=== PATIENT | male | born 1940 | race Caucasian/White ===

== ENCOUNTER 2019-01-27 10:13 | Emergency (ER) | payer MEDICARE, BC ==
[2019-01-27 10:37] VITALS: BP 117/87
--- NOTE | 2019-01-27 10:50 | UC ---
Knee Pain HPI - HPI Summary HPI Summary: 78-year-old male comes in with a chief complaint of left knee swelling and pain. Patient's been increasing his activity level in the last couple of weeks and a little more than a week ago he started having some pain in his left calf and left knee. Pain in the calf is improved and he has since developed swelling and more pain in the left knee joint. Pain is worse with activity it' s better with rest. Denies any weakness or locking or clicking. Pain is most prominent in the medial aspect. - History of Current Complaint Chief Complaint: UCLowerExtremity Stated Complaint: LEFT KNEE PAIN Time Seen by Provider: 01/27/19 10:30 Pain Intensity: 5 - Allergies/Home Medications Allergies/Adverse Reactions: Allergies Allergy/AdvReac Type Severity Reaction Status Date / Time No Known Allergies Allergy Verified 01/27/19 10:31 Home Medications: Home Medications Calcium Carbonate [Calcium] 500 mg PO DAILY 01/27/19 [History Confirmed 01/27/19 ] Finasteride TAB* [Proscar TAB*] 5 mg PO DAILY 01/27/19 [History Confirmed ] Ipava-3/Dha/Epa/Fish Oil [Fish Oil 1,000 mg Softgel] 1,000 mg PO DAILY 01/27/19 [History Confirmed 01/27/19] Vitamin THERAPEUTIC TAB* [Theragran TAB*] 1 tab PO DAILY 01/27/19 [History Confirmed 01/27/19] PMH/Surg Hx/FS Hx/Imm Hx Previously Healthy: Yes - BPH - Surgical History Surgical History: Yes Surgery Procedure, Year, and Place: tonsils, the tonsils grew back - Family History Known Family History: Positive: Non-Contributory - Social History Alcohol Use: Rare Substance Use Type: None Smoking Status (MU): Never Smoked Tobacco Review of Systems All Other Systems Reviewed And Are Negative: Yes Constitutional: Positive: Negative Skin: Positive: Negative Eyes: Positive: Negative ENT: Positive: Negative Respiratory: Positive: Negative Cardiovascular: Positive: Negative Motor: Positive: Negative Neurovascular: Positive: Negative Musculoskeletal: Positive: Other: - SEE HPI Neurological: Positive: Negative Psychological: Positive: Negative Is Patient Immunocompromised?: No Physical Exam Triage Information Reviewed: Yes Appearance: Well-Appearing, No Pain Distress, Well-Nourished Vital Signs: Initial Vital Signs Temp 97.8 F 01/27/19 10:29 Pulse 64 01/27/19 10:29 Resp 20 01/27/19 10:29 BP 117/87 01/27/19 10:29 Pulse Ox 99 01/27/19 10:29 Vital Signs Reviewed: Yes Eye Exam: Normal Eyes: Positive: Conjunctiva Clear Neck: Positive: Supple Respiratory: Positive: No respiratory distress Musculoskeletal: Positive: Other: - There is a left knee effusion. He is nontender on the patella. He's tender in the medial aspect of the knee. Minimal calf tenderness no calf swelling. Knee is stable to exam negative Alyssa's. No erythema. It is not hot to touch. Neurological: Positive: Alert Psychological: Positive: Age Appropriate Behavior Skin Exam: Normal Knee Pain Course/Dx - Course Course Of Treatment: Patient Name: MIK TORRES Medical Record#: [id number] Ordering Physician: Tha Avilez MD Acct.#: [id number] : 1940 Age: 78 Sex: M Location: [facility] Exam Date: 01/27/19 104 ADM Status: REG ER Order Information: KNEE LEFT 4+ VWS Accession Number: [id number] CPT: 86140 Indication: Left knee pain. 4 views of the left knee demonstrates joint space narrowing in the medial compartment. Chondrocalcinosis is noted in the lateral compartment and medial compartment. Calcification along the quadriceps tendon insertion is noted. A small to moderate suprapatellar effusion is noted. IMPRESSION: Joint space narrowing medial compartment. Chondrocalcinosis in the medial and lateral compartment with small to moderate joint effusion. Calcification of the quadriceps tendon is noted. <Electronically signed by Dory Logan MD in [facility]> 01/27/19 1104 I discussed the x-rays with the patient. Plan is ice rests and ibuprofen. Follow-up with sports medicine or orthopedics. - Differential Dx/Diagnosis Provider Diagnosis: Knee effusion, left, Left knee pain Discharge - Sign-Out/Discharge Documenting (check all that apply): Patient Departure All imaging exams completed and their final reports reviewed: Yes - Discharge Plan Condition: Stable Disposition: HOME Patient Education Materials: Osteoarthritis (ED), Swollen Knee Joint (ED) Referrals: Jad Kohli MD [Primary Care Provider] - [facility] [Provider Group] Russell Kirby MD [Medical Doctor] - Additional Instructions: FOLLOW UP WITH SPORTS MEDICINE OR ORTHOPEDICS. TAKE IBUPROFEN DIRECTED NEEDED. GET REEVALUATED SOONER IF WORSE OR ANY QUESTIONS OR CONCERNS. - Billing Disposition and Condition Condition: STABLE Disposition: Home
== END 2019-01-27 11:43 | disposition home or self-care (01) ==
LOC: UCCORT 10:13
DX: M25.562 Pain in left knee (principal); M25.462 Effusion, left knee
CPT/HCPCS: 99202; G0463